=== PATIENT | female | born 1990 | race Caucasian/White ===

== ENCOUNTER → 2018-03-02 | Outpatient (REF) | payer BC ==
[2018-03-02 14:51] LABS: TOTAL 25(OH) VITAMIN D 30.8 NG/ML (30.0-100.0)
[2018-03-04 00:07] LABS: TOPIRAMATE LEVEL 13.4 ug/mL (2.0-25.0)
== END ==
LOC: M LABNEURO 10:05
DX: R51 Headache (principal); R42 Dizziness and giddiness; E55.9 Vitamin D deficiency, unspecified
CPT/HCPCS: 84443